=== PATIENT | male | born 1950 | race Caucasian/White ===

== ENCOUNTER → 2017-06-27 | Outpatient (CLI) | payer OTHER, BC ==
[~2017-06-27] MED LIST: ALPR1 PO; AMLO10; AMOCLA875 PO; Aspirin EC81 MG PO; DIVA500ER PO; FAMO10; HYDCHL25 PO; HYDR1TAB94; HYDR1TAB94 PO; NASAL STEROID; OMEP10ER PO; OMEP20ER PO; OMEPRAZOLE MAGN20 MG PO; OXYACE5T PO; PRAM.125 PO; SIMV40 PO; SULTRIDS PO; TRAM50 PO
== END ==
LOC: PLD 11:16 → LAB SHORT 11:16
DX: L82.1 Other seborrheic keratosis (principal)
CPT/HCPCS: 88305

== ENCOUNTER → 2019-03-02 | Outpatient (CLI) | payer MEDICARE ==
[2019-03-05 14:10] LABS: Performing Lab SYMBIODX; Test Name TISSUE BIOPSY
== END | disposition home or self-care (01) ==
LOC: LAB SHORT 07:48 → PLD 07:48
PROVIDERS: Otolaryngology
DX: J34.89 Other specified disorders of nose and nasal sinuses (principal)
CPT/HCPCS: 88305; 88312; 88341; 88342

== ENCOUNTER → 2019-12-07 | Outpatient (CLI) | payer MEDICARE | LOC: PLD 12:07 → LAB SHORT 12:07 | DX: C44.612 Basal cell carcinoma of skin of right upper limb, including shoulder (principal) | CPT/HCPCS: 88305 ==

== ENCOUNTER → 2020-01-13 | Outpatient (CLI) | payer MEDICARE | END | disposition home or self-care (01) | LOC: PLD 13:11 → LAB SHORT 13:11 | DX: C44.612 Basal cell carcinoma of skin of right upper limb, including shoulder (principal) | CPT/HCPCS: 88305 ==

== ENCOUNTER → 2021-03-22 | Outpatient (CLI) | payer MEDICARE | END | disposition home or self-care (01) | LOC: PLD 11:08 → LAB SHORT 11:08 | DX: C44.222 Squamous cell carcinoma of skin of right ear and external auricular canal (principal); C44.311 Basal cell carcinoma of skin of nose; L57.8 Other skin changes due to chronic exposure to nonionizing radiation | CPT/HCPCS: 88305 ==

== ENCOUNTER → 2021-08-10 | Outpatient (CLI) | payer MEDICARE | END | disposition home or self-care (01) | LOC: LAB SHORT 12:31 → LAB 12:31 | DX: C86.0 Extranodal NK/T-cell lymphoma, nasal type (principal) | CPT/HCPCS: 87070; 87077; 87147; 87186 ==

== ENCOUNTER → 2021-09-20 | Outpatient (CLI) | payer MEDICARE | END | disposition home or self-care (01) | LOC: PLD 12:07 → LAB SHORT 12:07 | DX: C44.41 Basal cell carcinoma of skin of scalp and neck (principal) | CPT/HCPCS: 88305 ==

== ENCOUNTER 2021-12-13 12:21 | Day surgery (SDC) | payer MEDICARE ==
[~2021-12-13] VITALS: Ht 167.6 cm; Wt 59.9 kg
[2021-12-13] MEDS ORDERED: Percocet 10-321 EACH (12:53)
--- NOTE | 2021-12-13 13:40 | NUR ---
12/13/21 1340 TABATHA STEVENS 30MG OF EPI POURED ONTO STERILE FIELD FOR USE DURING CASE.
--- NOTE | 2021-12-13 14:16 | NUR ---
12/13/21 1416 Ellie Kahn PT RESPONDS TO VOICE AND IS AROUSABLE. VSS. O2 DC'D AT 1415. PT'S SATS ARE 98% ON ROOM AIR.
--- NOTE | 2021-12-13 14:36 | NUR ---
12/13/21 1436 Ellie Kahn PT TRANSFERRED FROM THE [facility] TO THE [facility] WITH STAND BY ASSIST FROM RN. BEDOYA AFTER TRANSFER. AT CHAIRSIDE. PT DENIES NAUSEA AND PAIN AT THIS TIME. PT IS TOLERATING PO FLUIDS WELL.
== END 2021-12-13 15:00 | disposition home or self-care (01) ==
LOC: ORSCSDS 12:21
PROVIDERS: Otolaryngology
PROC: 0CBR8ZX Excision of Epiglottis, Via Natural or Artificial Opening Endoscopic, Diagnostic (ICD-10-PCS; principal; 2021-12-13 14:00)
DX: J31.2 Chronic pharyngitis (principal); Z85.72 Personal history of non-Hodgkin lymphomas; I10 Essential (primary) hypertension; E78.5 Hyperlipidemia, unspecified; K21.9 Gastro-esophageal reflux disease without esophagitis; G25.81 Restless legs syndrome; Z79.899 Other long term (current) drug therapy; Z87.891 Personal history of nicotine dependence
CPT/HCPCS: 88305; J0171; J1100; J2250; J2405; J2704; J2710; J3010; J7120

== ENCOUNTER 2022-08-31 09:06 | Day surgery (SDC) | payer MEDICARE ==
[~2022-08-31] VITALS: Ht 170.2 cm; Wt 62.3 kg
[~2022-08-31 09:06] MED LIST changes: +Percocet 10-321 EACH
[2022-08-31] MEDS ORDERED: OMEP20ER PO (09:35)
[2022-08-31] MEDS ORDERED: IBUP400 PO (09:39)
[2022-08-31 10:55] VITALS: BP 110/72
== END 2022-08-31 11:02 | disposition home or self-care (01) ==
LOC: ORSCSDS 09:06
PROVIDERS: Internal Medicine Gastroenterology
PROC: 0DB68ZX Excision of Stomach, Via Natural or Artificial Opening Endoscopic, Diagnostic (ICD-10-PCS; 2022-08-31)
PROC: 0DB58ZX Excision of Esophagus, Via Natural or Artificial Opening Endoscopic, Diagnostic (ICD-10-PCS; 2022-08-31)
PROC: 0D757ZZ Dilation of Esophagus, Via Natural or Artificial Opening (ICD-10-PCS; principal; 2022-08-31 10:30)
DX: R13.10 Dysphagia, unspecified (principal); K21.9 Gastro-esophageal reflux disease without esophagitis; K22.2 Esophageal obstruction; E78.5 Hyperlipidemia, unspecified; G40.909 Epilepsy, unspecified, not intractable, without status epilepticus; Z85.72 Personal history of non-Hodgkin lymphomas; Z87.891 Personal history of nicotine dependence; Z79.899 Other long term (current) drug therapy
CPT/HCPCS: 88305; 88342; J2704; J7120

== ENCOUNTER → 2022-11-14 | Outpatient (CLI) | payer MEDICARE ==
[~2022-11-14] MED LIST changes: +AMIT25 PO; +BENZ100A PO; +FLOMAX0.4 MG PO; +IBUP400 PO; +MIRAPEX0.25 M1 PO; +REMERON15 M2 PO
[2022-11-14 15:55] LABS: C DIFFICILE DNA NEGATIVE (Negative)
== END ==
LOC: LAB 08:00 → LAB SHORT 08:00
PROVIDERS: Physician Assistant
DX: R19.5 Other fecal abnormalities (principal)
CPT/HCPCS: 87493

== ENCOUNTER 2023-02-10 13:33 | Emergency (ER) | payer MEDICARE ==
[~2023-02-10] VITALS: Ht 170.2 cm; Wt 63.5 kg
[2023-02-10 14:21] LABS: BASOPHILS ABSOLUTE AUTO 0.01 K/mm3 (0.00-0.23); BASOPHILS PERCENT AUTO 0 % (0-2); EOSINOPHILS ABSOLUTE AUTO 0.03 K/mm3 (0.00-0.68); EOSINOPHILS PERCENT AUTO 0 % (0-6); Hematocrit 31.7 % (37.0-53.0); Hemoglobin 10.4 g/dL (13.5-17.5); IMMATURE GRAN ABSOLUTE AUTO 0.03 K/mm3 (0.00-0.10); IMMATURE GRAN PERCENT AUTO 0 % (0-1); LYMPHOCYTES ABSOLUTE AUTO 1.02 K/mm3 (0.84-5.20); LYMPHOCYTES PERCENT AUTO 12 % (21-46); MONOCYTES ABSOLUTE AUTO 0.95 K/mm3 (0.16-1.47); MONOCYTES PERCENT AUTO 11 % (4-13); Mean Corpuscular HGB 29.9 pg (26.0-34.0); Mean Corpuscular HGB Conc 32.8 g/dL (31.5-36.5); Mean Corpuscular Volume 91 fL (80-100); Mean Platelet Volume 8.4 fL (9.1-12.4); NEUTROPHILS ABSOLUTE AUTO 6.37 K/mm3 (1.96-9.15); NEUTROPHILS PERCENT AUTO 76 % (41-73); Platelet Count 178 K/mm3 (150-400); RDW Coefficient Variation 14.6 % (11.7-14.2); RDW Standard Deviation 48.6 fL (35.1-46.3); Red Blood Cell Count 3.48 M/mm3 (4.30-5.90); White Blood Cell Count 8.41 K/mm3 (4.00-11.30)
[2023-02-10 14:42] LABS: Albumin, Blood 2.7 g/dL (3.4-5.0); Albumin/Globulin Ratio 0.6 (0.8-1.8); Bilirubin, Total 0.3 mg/dL (0.1-1.0); Bun/Creatinine Ratio 39.5 (12.0-20.0); Calcium, Blood 9.3 mg/dL (8.5-10.1); Creatinine, Blood 0.66 mg/dL (0.60-1.20); Globulin, Blood 4.7 g/dL (2.2-4.0); Potassium, Blood 3.6 mmol/L (3.5-5.5); Total Protein, Blood 7.4 g/dL (6.4-8.2)
[2023-02-10 22:00] VITALS: BP 132/110
== END 2023-02-10 22:35 | disposition home or self-care (01) ==
LOC: ER 13:33
PROVIDERS: Physician Assistant
DX: R04.0 Epistaxis (principal); G40.909 Epilepsy, unspecified, not intractable, without status epilepticus; I10 Essential (primary) hypertension; I35.0 Nonrheumatic aortic (valve) stenosis; Z98.890 Other specified postprocedural states; Z79.02 Long term (current) use of antithrombotics/antiplatelets; Z87.891 Personal history of nicotine dependence
CPT/HCPCS: 30903; 70487; 71046; 80053; 83690; 85025; 86850; 86900; 86901; 96374-59; 99285-25; A9270; Q9967

== ENCOUNTER → 2023-02-19 | Outpatient (CLI) | payer OTHER ==
[~2023-02-19] MED LIST changes: +Aspir 8181 MG PO; +Crestor20 MG PO
== END ==
LOC: LAB 07:11 → LAB SHORT 07:11
DX: C86.0 Extranodal NK/T-cell lymphoma, nasal type (principal); J31.2 Chronic pharyngitis
CPT/HCPCS: 88305; 88312; 88341; 88342

== ENCOUNTER 2023-02-23 09:25 | Inpatient (IN) | payer OTHER ==
[~2023-02-23] VITALS: Ht 167.6 cm; Wt 55.4 kg
[~2023-02-23 09:25] MED LIST changes: -Aspir 8181 MG PO; -Crestor20 MG PO; +DIVA125 PT; +Prilosec10 M1 PT
[2023-02-23 11:10] LABS: BASOPHILS ABSOLUTE AUTO 0.01 K/mm3 (0.00-0.23); BASOPHILS PERCENT AUTO 0 % (0-2); EOSINOPHILS PERCENT AUTO 0 % (0-6); Hematocrit 24.5 % (37.0-53.0); Hemoglobin 8.2 g/dL (13.5-17.5); IMMATURE GRAN ABSOLUTE AUTO 0.05 K/mm3 (0.00-0.10); IMMATURE GRAN PERCENT AUTO 0 % (0-1); LYMPHOCYTES ABSOLUTE AUTO 0.58 K/mm3 (0.84-5.20); LYMPHOCYTES PERCENT AUTO 5 % (21-46); MONOCYTES PERCENT AUTO 4 % (4-13); Mean Corpuscular HGB 29.7 pg (26.0-34.0); Mean Corpuscular HGB Conc 33.5 g/dL (31.5-36.5); Mean Corpuscular Volume 89 fL (80-100); NEUTROPHILS ABSOLUTE AUTO 10.14 K/mm3 (1.96-9.15); NEUTROPHILS PERCENT AUTO 90 % (41-73); Platelet Count 231 K/mm3 (150-400); RDW Coefficient Variation 14.9 % (11.7-14.2); RDW Standard Deviation 47.8 fL (35.1-46.3); Red Blood Cell Count 2.76 M/mm3 (4.30-5.90); White Blood Cell Count 11.28 K/mm3 (4.00-11.30)
[2023-02-23 11:37] LABS: Albumin, Blood 2.3 g/dL (3.4-5.0); Albumin/Globulin Ratio 0.4 (0.8-1.8); Bilirubin, Total 0.4 mg/dL (0.1-1.0); Bun/Creatinine Ratio 34.8 (12.0-20.0); Calcium, Blood 9.4 mg/dL (8.5-10.1); Creatinine, Blood 0.83 mg/dL (0.60-1.20); Globulin, Blood 5.7 g/dL (2.2-4.0)
[2023-02-23] MEDS ORDERED: Crestor20 MG PO (13:49)
[2023-02-23] MEDS ORDERED: ASPI81CH PO (13:49)
[2023-02-23 18:00] VITALS: BP 104/71
--- NOTE | 2023-02-23 19:14 | NUR ---
PT ARRIVED TO ROOM [id number] VIA GURNEY FROM ER. D5LR INFUSING PER MD ORDERS. PT AWAKE, ALERT, ORIENTED X4. ORIENTED TO ROOM, UNIT AND ROUTINES. PT GIVEN CALL LIGHT AND EXPLAINED USE, PT VERBALIZES UNDERSTANDING. PT'S VOICE IS QUIET AND HARSH, FREQUENT COUGHING, SUCTION SET UP FOR PT TO USE. PT NOTED TO HAVE FOUL ORAL ODOR, TEMP 99.8, SR HR 92 ON ARRIVAL. SEE DOCUMENTED VS. PT MEDICATED WITH MORPHINE FOR THROAT PAIN. PT APPEARS FRAIL AND CACHECTIC, PALE, WEAK. PT ABLE TO STAND AND PIVOIT FROM GURNEY TO BED ON ARRIVAL. REPORT GIVEN TO SOHAM LINDSEY. PT HAS CALL LIGHT IN REACH AND IS ABLE TO USE IT APPROPRIATELY FOR NEEDS.
[2023-02-23 20:00] VITALS: BP 100/64
[2023-02-24] VITALS (15 sets, daily range): BP systolic 87–126; BP diastolic 28–99
[2023-02-24 04:03] LABS: BASOPHILS PERCENT AUTO 0 % (0-2); EOSINOPHILS PERCENT AUTO 0 % (0-6); Hematocrit 19.6 % (37.0-53.0); Hemoglobin 6.5 g/dL (13.5-17.5); IMMATURE GRAN ABSOLUTE AUTO 0.04 K/mm3 (0.00-0.10); IMMATURE GRAN PERCENT AUTO 1 % (0-1); LYMPHOCYTES ABSOLUTE AUTO 0.34 K/mm3 (0.84-5.20); LYMPHOCYTES PERCENT AUTO 6 % (21-46); MONOCYTES ABSOLUTE AUTO 0.31 K/mm3 (0.16-1.47); MONOCYTES PERCENT AUTO 5 % (4-13); Mean Corpuscular HGB 29.8 pg (26.0-34.0); Mean Corpuscular HGB Conc 33.2 g/dL (31.5-36.5); Mean Corpuscular Volume 90 fL (80-100); Mean Platelet Volume 8.3 fL (9.1-12.4); NEUTROPHILS ABSOLUTE AUTO 5.54 K/mm3 (1.96-9.15); NEUTROPHILS PERCENT AUTO 89 % (41-73); Platelet Count 192 K/mm3 (150-400); RDW Coefficient Variation 14.8 % (11.7-14.2); RDW Standard Deviation 48.6 fL (35.1-46.3); Red Blood Cell Count 2.18 M/mm3 (4.30-5.90); White Blood Cell Count 6.23 K/mm3 (4.00-11.30)
[2023-02-24 04:29] LABS: Albumin, Blood 1.8 g/dL (3.4-5.0); Albumin/Globulin Ratio 0.4 (0.8-1.8); Bilirubin, Total 0.2 mg/dL (0.1-1.0); Bun/Creatinine Ratio 47.9 (12.0-20.0); Calcium, Blood 9.2 mg/dL (8.5-10.1); Creatinine, Blood 0.54 mg/dL (0.60-1.20); Globulin, Blood 4.7 g/dL (2.2-4.0); Magnesium, Blood 1.9 mg/dL (1.6-2.4); Phosphorus, Blood 2.6 mg/dL (2.5-4.9); Total Protein, Blood 6.5 g/dL (6.4-8.2)
--- NOTE | 2023-02-24 05:19 | NUR ---
SHIFT SUMMARY PT A&O X4, PLEASANT AND COOPERATIVE WITH CARE ALTHOUGH PT DOES SEEM A LITTLE WITHDRAWN AND AFFECT IS FLAT. PT SPEECH IS SOFT AND AT TIMES HAS DIFFICULT TIME TALKING, STRONG ODOR NOTED FROM ORAL CAVITY. PT DOES HAVE FREQUENT PRODUCTIVE COUGH WITH THICK, PURULENT SPUTUM. PT DENIES BLOOD IN SPUTUM AT THIS TIME. PT C/O THROAT PAIN, MOSTLY ON THE L SIDE, 10/10 PAIN. MEDICATION PER EMAR WELL REST. ABX PER EMAR. VSS T/O; SBP 90 - 100'S, HRR SINUS RHYTHM WOTH RATE IN 90'S, TEMP MAX 99.8, SPO2 >94% ON RA. PT DENIES SOB, CP/PRESSURE. PT DENIES CONCERNS WITH GI/; PT VOIDING THIS SHIFT. PT AMBULATING TO RESTROOM WITH FWW AND ASSISTANCE. PT TOLERATING THIS FAIR BUT GAIT IS MILDLY UNSTEADY AND PT IS WEAK. NO ACUTE EVENTS OVERNIGHT. PT DOES EXPRESS HE IS "WAITING TO HEAR IF HE IS GOING TO OR NOT" PT STATES HE IS AWAITING "TEST RESULTS TO FIND OUT". PT EXPRESSES HE IS "READY" AND IS "READY TO BE ON HOSPICE OR BE DONE". PT STATES HE "FEELS OKAY WITH THIS" AND "JUST WANTS HIS TO NOT BE SO BURDENED WITH HIM". THIS RN OFFERED SUPPORT AND LISTENING. PT DID NOT SLEEP MUCH THIS SHIFT, "ON AND OFF" D/T DISCOMFORT AND PAIN DESPITE MEDICAITION. IVF NUTRITION AND FLUIDS PER EMAR. WILL UPDATE ONCOMING RN
[2023-02-24 15:01] LABS: Hematocrit 24.3 % (37.0-53.0)
--- NOTE | 2023-02-24 17:51 | NUR ---
ASSUMED CARE OF PT AT 0700 THIS AM. PT'S HEMOGLOBIN NOTED TO BE 6.5 ON THIS MORNING'S LABS AND CLINIMIX PLUS D5LR RUNNING. DR CARBALLO NOTIFIED AND NEW ORDERS RECEIVED. 1 UNIT PRBCs TRANSFUSED WITHOUT ANY COMPLICATIONS OR REACTIONS NOTED. BREATH SOUNDS REMAINED CLEAR T/O AND SPO2 STEADY >95%. HEMOGLOBIN INCREASED TO 8.0 ON RECHECK AFTER BLOOD TRANSFUSION. PT MEDICATED FOR PAIN AND ANXIETY PER MD ORDERS. PT'S IN TO VISIT AND SHE WAS UPDATED ON PT'S CONDITION AND PLAN OF CARE. NO OTHER ACUTE EVENTS T/O THE SHIFT. SEE DOCUMENTED VS AND ASSESSMENT. PT NOTED TO HAVE SOME PERIODS OF CONFUSION AT TIMES TODAY, BUT IS ABLE TO USE HIS CALL LIGHT AND COMMUNICATE HIS NEEDS APPROPRIATELY. WILL CONTINUE TO MONITOR AND GIVE REPORT TO NOC SHIFT RN.
[2023-02-25] VITALS: BP 137/85
[2023-02-25 04:00] VITALS: BP 135/94
[2023-02-25 04:40] LABS: BASOPHILS PERCENT AUTO 0 % (0-2); EOSINOPHILS PERCENT AUTO 0 % (0-6); Hematocrit 25.1 % (37.0-53.0); Hemoglobin 8.4 g/dL (13.5-17.5); IMMATURE GRAN ABSOLUTE AUTO 0.04 K/mm3 (0.00-0.10); IMMATURE GRAN PERCENT AUTO 1 % (0-1); LYMPHOCYTES ABSOLUTE AUTO 0.49 K/mm3 (0.84-5.20); LYMPHOCYTES PERCENT AUTO 6 % (21-46); MONOCYTES ABSOLUTE AUTO 0.59 K/mm3 (0.16-1.47); MONOCYTES PERCENT AUTO 8 % (4-13); Mean Corpuscular HGB 29.9 pg (26.0-34.0); Mean Corpuscular HGB Conc 33.5 g/dL (31.5-36.5); Mean Corpuscular Volume 89 fL (80-100); Mean Platelet Volume 8.7 fL (9.1-12.4); NEUTROPHILS ABSOLUTE AUTO 6.49 K/mm3 (1.96-9.15); NEUTROPHILS PERCENT AUTO 85 % (41-73); Platelet Count 228 K/mm3 (150-400); RDW Coefficient Variation 14.4 % (11.7-14.2); RDW Standard Deviation 46.5 fL (35.1-46.3); Red Blood Cell Count 2.81 M/mm3 (4.30-5.90); White Blood Cell Count 7.61 K/mm3 (4.00-11.30)
[2023-02-25 05:12] LABS: Albumin, Blood 1.9 g/dL (3.4-5.0); Anion Gap 7 mmol/L (6-16); Blood Urea Nitrogen 24 mg/dL (8-24); CO2, Blood 26 mmol/L (21-32); Calcium, Blood 9.3 mg/dL (8.5-10.1); Chloride, Blood 100 mmol/L (98-108); Creatinine, Blood 0.51 mg/dL (0.60-1.20); Glomerular Filtration Rate 108 (60-); Glucose, Blood 117 mg/dL (70-99); Magnesium, Blood 1.8 mg/dL (1.6-2.4); Phosphorus, Blood 3.2 mg/dL (2.5-4.9); Sodium, Blood 133 mmol/L (136-145)
--- NOTE | 2023-02-25 05:19 | NUR ---
SHIFT SUMMARY PT REMAINS A&O X3, PLEASANT AND COOPERATIVE WITH CARE. VSS T/O SHIFT; SBP 120 - 130'S, SINUS RHYTHM WITH RATE IN 70'S, AFERBILE, SPO2 >95% ON RA. PT DENIES CP/PRESSURE, DENIES SOB OR DIZZINESS. PT CONTINUES TO HAVE PRODUCTIVE COUGH; PT DENIES BLOOD IN SPUTUM. PT CONTINUES TO REPORT PAIN 5-6/10 IN HIS THROAT AND EARS; ALTHOUGH PT DID NOT C/O MUCH PREVIOUS, PT MEDICATED LESS OFTEN PAIN HE DID NOT ASK OR DECLINED WHEN ASKED. PT SEEMED TO HAVE RESTED WELL T/O THE NIGHT BETTER THAN PREVIOUS NIGHTS. PT USING URINAL INDEPENDENTLY AT BEDSIDE; PT VOIDING SMALL AMOUNTS, FREQUENTLY AROUND 50 - 200 MLS EACH TIME. PT HAD 2 BM'S THIS SHIFT; ONE WAS INCONTINENT AND MEDIUM, THE OTHER ONE WAS ON BSC AND WAS LARGE, FORMED BUT SOFT AND BROWN/YELLOW IN COLOR. IV NUTRITION AND ABX PER EMAR. CBG STABLE. NO ACUTE CHANGES DURING THE NIGHT. CALL LIGHT IN REACH AND PT CURRENTLY RESTING. WILL UPDATE ONCOMING RN
[2023-02-25 07:25] VITALS: BP 125/86
[2023-02-25 09:12] LABS: Triglycerides 84 mg/dL (30-160)
[2023-02-25 09:52] VITALS: BP 128/98
--- NOTE | 2023-02-25 17:14 | NUR ---
SHIFT SUMMARY PT REMAINS ALERT AND ORIENTED. PT IS SOFT SPOKEN. BP STABLE. HR REMAINS NSR. PT COMPLAINS OF PAIN TO THROAT, NECK AND EYES THROUGHOUT SHIFT. PT COUGHS FREQUENTLY AND COMPLAINS OF NASAL CONGESTION. PT USING SALINE SPRAY TO CLEAR SINUSES. PT IS NOW NPO AFTER WORKING WITH SPEECH THERAPY. DR. FORREST CALLED AND DISCUSSED HOME MEDICATIONS THAT PATIENT IS NOT RECEIVING, AND SWITCHING PO MEDS TO IV. CLINIMIX INFUSING PER ORDERS. PT UP TO BSC MULTIPLE TIMES TO VOID. PT MEDICATED PER EMAR FOR PAIN AND HAS HAD LIGHT OFF IN ROOM MOST OF SHIFT HE STATES IT HELPS THE PAIN IN HIS EYES. PT REPOSTIONING HIMSELF IN THE BED INDEPENDENTLY. WILL CONTINUE TO MONITOR AND REPORT TO ONCOMING RN
--- NOTE | 2023-02-25 17:41 | NUR ---
UPDATE REPORT CALLED TO MEDICAL FLOOR ROSALIA MARADIAGA. PT TRANSFERRED TO [facility] VIA . PT'S CALLED AND NOTIFIED OF TRANSFER AND NEW ROOM NUMBER
--- NOTE | 2023-02-25 18:58 | NUR ---
TRANSFER NOTE: PATIENT ARRIVED VIA WHEELCHAIR FROM THE FROM PCU. HE WAS ABLE TO SELF TRANSFER FROM THE WHEELCHAIR TO THE BED. HE WAS RECEIVING IV CLINIMIX WHEN HE ARRIVED. NEW BAG CALLED IN TO PHARMACY AND PLACED IN PATIENT DRAW. HE WAS MEDICATED PER REQUEST FOR PAIN AND ANXIETY. HE IS SETTLED IN HIS ROOM, CALL LIGHT WITHIN REACH, NEEDS MET. NO SIGNS OR SYMPTOMS OF DISTRESS. PLAN OF CARE ONGOING.
[2023-02-25 21:24] VITALS: BP 125/86
[2023-02-26] VITALS (33 sets, daily range): BP systolic 106–141; BP diastolic 79–109
[2023-02-26 06:17] LABS: BASOPHILS PERCENT AUTO 0 % (0-2); EOSINOPHILS PERCENT AUTO 0 % (0-6); Hematocrit 27.1 % (37.0-53.0); IMMATURE GRAN ABSOLUTE AUTO 0.07 K/mm3 (0.00-0.10); IMMATURE GRAN PERCENT AUTO 1 % (0-1); LYMPHOCYTES ABSOLUTE AUTO 1.04 K/mm3 (0.84-5.20); LYMPHOCYTES PERCENT AUTO 12 % (21-46); MONOCYTES ABSOLUTE AUTO 0.76 K/mm3 (0.16-1.47); MONOCYTES PERCENT AUTO 9 % (4-13); Mean Corpuscular HGB 29.5 pg (26.0-34.0); Mean Corpuscular HGB Conc 33.2 g/dL (31.5-36.5); Mean Corpuscular Volume 89 fL (80-100); Mean Platelet Volume 8.3 fL (9.1-12.4); NEUTROPHILS ABSOLUTE AUTO 6.84 K/mm3 (1.96-9.15); NEUTROPHILS PERCENT AUTO 79 % (41-73); Platelet Count 256 K/mm3 (150-400); RDW Coefficient Variation 14.2 % (11.7-14.2); RDW Standard Deviation 45.7 fL (35.1-46.3); Red Blood Cell Count 3.05 M/mm3 (4.30-5.90); White Blood Cell Count 8.71 K/mm3 (4.00-11.30)
[2023-02-26 06:41] LABS: Bun/Creatinine Ratio 37.3 (12.0-20.0); Calcium, Blood 9.9 mg/dL (8.5-10.1); Creatinine, Blood 0.56 mg/dL (0.60-1.20); Potassium, Blood 4.7 mmol/L (3.5-5.5)
--- NOTE | 2023-02-26 06:58 | NUR ---
Shift Summary Pt rcving clinimex and IV pain medications for severe throat pain, as well as IV ABX . Pt accidentally pulled out his IV while using the urinal, a new IV was placed in L AC and protected with coban wrap. His voice is hoarse. He is AOx3 and can move to the BSC steadily with one SBA. Strength is equal on both sides and pupils react equally and approriatly to light. He has noticable tremor. He slept on and off t/o the night and was cooperative with care.
--- NOTE | 2023-02-26 16:00 | NUR ---
PT TO DAY SURGERY FOR EGD W/Placement Feeding Tube BY DR DIXON. PLAN OF CARE DISCUSSED WITH PT.
--- NOTE | 2023-02-26 16:17 | NUR ---
PT TO DAY SURGERY WITH 20G IV IN RIGHT AC AND HAS 22G IV IN LEFT AC.
--- NOTE | 2023-02-26 17:09 | NUR ---
02/26/23 3228 Dennis Babb History, Chart, Medications and Allergies reviewed before start of procedure. MONITOR INTACT WITH CONTINUOUS PULSE OXIMETRY, CONTINUOUS END TITAL CO2, AND INTERMITTENT BLOOD PRESSURE. 3-LEAD EKG REVIEWED WITH PHYSICIAN PRIOR TO START OF PROCEDURE. O2 VIA N/C INTACT THROUGHOUT SEDATION/PROCEDURE.
--- NOTE | 2023-02-26 17:49 | NUR ---
BLEEDING FROM INCISION NOTED AFTER PROCEDURE. DRESSING SATURATED WITH BLOOD. DR DIXON INFORMED. PRESSURE REMAINED HELD ON INCISION BY RN FOR MULTIPLE MINUTES. BLEEDING SLOWED, NEW DRESSING WITH FOAM TAPE PRESSING DRESSING IN PLACE.
--- NOTE | 2023-02-26 18:42 | NUR ---
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 HE HAS BEEN NPO AND UNDERWENT SURGERY THIS AFTERNOON FOR PEG TUBE PLACEMENT. PATIENT RETURNED FROM DAY SURGERY VIA GURNEY WAS ALERT AND ORIENTED WHEN ARRIVED AND C/O MINIMAL DISCOMFORT. HE WAS ABLE TO AMBULATE TO HIS BED WITHOUT DIFFICULTY. HE WAS CONNECTED TO HIS IV FLUIDS/CLINIMIX/LIPIDS. PER DR. DIXON ORDER OKAY TO START USING PEG TUBE TOMORROW 02/27/23 ATFER 0600AM. THE DAY SURGERY NURSE MARCIAL CALLED AND GAVE REPORT THAT THE PATIENT TOLERATED THE PROCEDURE WELL AND THAT HE DOES HAVE SOME POST SURGICAL BLEEDING AND THAT PRESSURE WAS APPLIED AND THAT FOAM TAPE WAS APPLIED TO KEEP APPLYING PRESSURE. DRESSING WAS SATURATED WITH BLOOD AND PATIENT'S GOWN/PANTS NEEDED TO BE CHANGED. HIS DRESSING WAS CHANGED AND FOAM TAPE REAPPLIED FOR SLIGHT PRESSURE. POST OP VITALS OBTAINED AND ARE STABLE. PATIENT NOT SHOWING ANY SIGNS OR SYMPTOMS OF DISTRESS AND STATES THAT HE FEELS GOOD AND THAT HE WOULD LIKE TO GO TO SLEEP. HE IS IN HIS BED, CALL LIGHT WITHIN REACH, BELONGINGS WITHIN REACH. PLAN OF CARE ONGOING.
[2023-02-27 02:55] VITALS: BP 122/84
[2023-02-27 06:33] LABS: BASOPHILS ABSOLUTE AUTO 0.01 K/mm3 (0.00-0.23); BASOPHILS PERCENT AUTO 0 % (0-2); EOSINOPHILS PERCENT AUTO 0 % (0-6); Hematocrit 27.5 % (37.0-53.0); Hemoglobin 9.2 g/dL (13.5-17.5); IMMATURE GRAN ABSOLUTE AUTO 0.16 K/mm3 (0.00-0.10); IMMATURE GRAN PERCENT AUTO 2 % (0-1); LYMPHOCYTES ABSOLUTE AUTO 1.27 K/mm3 (0.84-5.20); LYMPHOCYTES PERCENT AUTO 12 % (21-46); MONOCYTES ABSOLUTE AUTO 1.01 K/mm3 (0.16-1.47); MONOCYTES PERCENT AUTO 10 % (4-13); Mean Corpuscular HGB 29.5 pg (26.0-34.0); Mean Corpuscular HGB Conc 33.5 g/dL (31.5-36.5); Mean Corpuscular Volume 88 fL (80-100); Mean Platelet Volume 8.9 fL (9.1-12.4); NEUTROPHILS ABSOLUTE AUTO 7.89 K/mm3 (1.96-9.15); NEUTROPHILS PERCENT AUTO 76 % (41-73); NRBC ABSOLUTE 0.02 K/mm3 (0.00-0.02); NRBC Auto 0.2 /100 WBC (0.0-0.2); Platelet Count 303 K/mm3 (150-400); RDW Coefficient Variation 14.5 % (11.7-14.2); RDW Standard Deviation 45.7 fL (35.1-46.3); Red Blood Cell Count 3.12 M/mm3 (4.30-5.90); White Blood Cell Count 10.34 K/mm3 (4.00-11.30)
[2023-02-27 07:03] LABS: Bun/Creatinine Ratio 39.7 (12.0-20.0); Calcium, Blood 9.7 mg/dL (8.5-10.1); Creatinine, Blood 0.53 mg/dL (0.60-1.20); Potassium, Blood 4.2 mmol/L (3.5-5.5)
[2023-02-27 07:38] VITALS: BP 120/91
[2023-02-27 12:03] LABS: Magnesium, Blood 1.6 mg/dL (1.6-2.4); Phosphorus, Blood 3.5 mg/dL (2.5-4.9)
[2023-02-27 16:41] VITALS: BP 99/80
--- NOTE | 2023-02-27 17:08 | NUR ---
PT REPORTS CONGESTION. OFFERED TO CALL MD FOR MEDICAION OR TREATMENT. PT DECLINED. PT USING WATER RINSE IN NOSTRAL AND USING TWEEZERS TO TRY AND REMOVE FOREIGN MATTERIAL. EDUCATED PT AGAINST DOING SO. PT BECAME UPSET AND STATED "THIS IS THE ONLY WAY TO DO IT" HE REPORTS DOING SO FOR YEARS. EMPHASIZED THE RISK OF POTENTIAL DAMAGE AND RISK OF INFECTION. PT VERBALIZED UNDERSTANDING OF EDUCATION BUT WILL CONTINUE TO STICK TWEEZERS IN NOSTRAL. MD NOTIFED ABOUT SITUATION.
[2023-02-27 19:34] VITALS: BP 103/73
--- NOTE | 2023-02-27 19:40 | NUR ---
PT IS ALERT AND ORIENTED X4. VERY PARTICULAR IN HIS PERSONAL CARE. URINAL USE INDEPENDENTLY. SBA TO CHAIR AND BED. WILL CALL APPROPRIATELY. TREATED THROAT PAIN, ABDOMEN TUBE SITE, AND BACK PAIN PER EMAR. TUBE FEEDING STARTED TODAY ORDERED. PT TOLORATED WELL, DENIES CRAMPING AND DISCOMFORT AFTER FEEDING. PT REMAINS NPO BUT EXPRESSED DESIRE TO EAT WHAT HE FEELS LIKE AND GET NUTRITION FROM PED TUBE. DRESSING CHANGED THIS MORNING. SANGUNOUS DISCHARGE- MODERATE NOTED ON SOILED DRESSING.
[2023-02-28 04:10] VITALS: BP 117/93
--- NOTE | 2023-02-28 04:25 | NUR ---
SHIFT SUMMARY: PATIENT A&O X4. TUBE FEEDING AND FLUSHES GIVEN ORDERED AND TOLERATED WELL NO C/O GI UPSET OR DISCOMFORT R/T FEEDING. IV ABX INFUSED ORDERED THIS SHIFT, INDEPENDANT WITH URNIAL. C/O HEAD, THROAT AND PELVIC PAIN TREATED PER EMAR AND EFFECTIVE. COUGH OBSERVED THIS SHIFT.
[2023-02-28 05:32] LABS: BASOPHILS ABSOLUTE AUTO 0.01 K/mm3 (0.00-0.23); BASOPHILS PERCENT AUTO 0 % (0-2); EOSINOPHILS ABSOLUTE AUTO 0.01 K/mm3 (0.00-0.68); EOSINOPHILS PERCENT AUTO 0 % (0-6); Hemoglobin 9.9 g/dL (13.5-17.5); IMMATURE GRAN ABSOLUTE AUTO 0.15 K/mm3 (0.00-0.10); IMMATURE GRAN PERCENT AUTO 2 % (0-1); LYMPHOCYTES ABSOLUTE AUTO 1.65 K/mm3 (0.84-5.20); LYMPHOCYTES PERCENT AUTO 18 % (21-46); MONOCYTES ABSOLUTE AUTO 1.06 K/mm3 (0.16-1.47); MONOCYTES PERCENT AUTO 11 % (4-13); Mean Corpuscular HGB 29.4 pg (26.0-34.0); Mean Corpuscular Volume 89 fL (80-100); Mean Platelet Volume 8.4 fL (9.1-12.4); NEUTROPHILS ABSOLUTE AUTO 6.52 K/mm3 (1.96-9.15); NEUTROPHILS PERCENT AUTO 69 % (41-73); Platelet Count 349 K/mm3 (150-400); RDW Coefficient Variation 14.8 % (11.7-14.2); RDW Standard Deviation 46.4 fL (35.1-46.3); Red Blood Cell Count 3.37 M/mm3 (4.30-5.90)
[2023-02-28 06:18] LABS: Magnesium, Blood 1.8 mg/dL (1.6-2.4)
[2023-02-28 06:20] LABS: Bun/Creatinine Ratio 37.9 (12.0-20.0); Calcium, Blood 9.6 mg/dL (8.5-10.1); Creatinine, Blood 0.63 mg/dL (0.60-1.20); Phosphorus, Blood 2.7 mg/dL (2.5-4.9); Potassium, Blood 3.6 mmol/L (3.5-5.5)
[2023-02-28 07:31] VITALS: BP 110/87
[2023-02-28 15:10] VITALS: BP 102/77
--- NOTE | 2023-02-28 18:20 | NUR ---
PT IS ALERT AND ORIENTED X4. FORGETFUL. PEG TUBE SPLIT GAUZE C/D/I. NO NEED TO CHANGE THIS SHIFT. PT TOLORATING FEEDS AT GOAL. SBA WITH WALKER. EDUCATED PT ON FALL RISKS PT VERBALIZE UNDERSTANDING. PT IS VERY ANXIOUS AND BECAME UPSET WHEN HE WAS TOLD HE WOULD NEED TO STAY ANOTHER NIGHT. EXPLAINED THAT WE DID NOT HAVE EVERYTHING SET UP AT HOME FOR HIM TO HAVE A SAFE DISCHARGE TONIGHT. PT UNDERSTANDABLY UPSET. ORDERED MELATONIN PER DR. FORREST. PT REPORTING NOT SLEEPING AT ALL. HOME DOSE IS 5-10MG. PT IS CONGESTED AND DECLINES ALL OFFERS TO SPEAK TO MD ABOUT IT, DECLINES MEDICATION, PT BECOMES UPSET WHEN DISCUSSING THE MATTER AND STATES THAT HE HAS BEEN CLEANING OUT HIS SINUSES HIS WAY FOR SEVERAL YEARS AND HE KNOWS WHAT HE NEEDS TO DO. PT SQUIRTING WATER FROM HOME SQUEEZE BOTTLE IN NOSE AND STICKING TWEEZERS IN NOSE TO REMOVE DEBRIS. STRONGLY SUGGESTED THAT HE NOT DO SO AND EXPLAINED RISK FOR DAMAGE AND INFECTION AGAIN TODAY. PT VERBALIZED UNDERSTANDING BUT STATED HE WILL DO IT ANYWAY. IV ANTIBIOTICS CONTINUED. PT DECLINED PAIN TODAY. DID HAVE BM TODAY.
[2023-02-28 20:05] VITALS: BP 89/62
--- NOTE | 2023-03-01 02:47 | NUR ---
STRAIGHT CATH: BLADDER SCAN SHOWED 571CC. STRAIGHT CATH, SMALL AMOUNT OF SHASHI BLOOD THEN CLEAR YELLOW URINE 650CC TOTAL OUT.
[2023-03-01 03:37] VITALS: BP 108/74
--- NOTE | 2023-03-01 04:43 | NUR ---
SHIFT SUMMARY: RESTING IN BED THIS SHIFT, VOIDING BETWEEN 50 TO 100CC AT A TIME, REPORTED URGENCY AND DISCOMFORT, NEW ORDER PLACED FOR BLADDER SCAN AND STRAIGHT CATH, STRAIGHT CATH 650CC OUT AND TOLERATED WELL, UP TO BATHROOM WITH STAFF ASSIST AND FWW.
[2023-03-01 07:14] VITALS: BP 103/66
[2023-03-01] MEDS ORDERED: AMOX-CLAV200 MG/51 PO (12:37)
[2023-03-01] MEDS ORDERED: DOXA1 PT (12:38)
[2023-03-01] MEDS ORDERED: NUTRISOURCE FI1 EACH PT (12:40)
[2023-03-01] MEDS ORDERED: B-1100 M2 PT (12:41)
[2023-03-01 12:44] LABS: Source, Urine Foley catheter
[2023-03-01] MEDS ORDERED: ROXICODONE PT (12:47)
[2023-03-01 12:54] LABS: Appearance, Urine Clear (Clear); Bilirubin, Urine Neg (Neg); Blood, Urine 5+ (Neg); Color, Urine Yellow (P-Yellow); Glucose Qualitative, Urine Neg (Neg); Ketones, Urine Neg (Neg); Leukocyte Esterase, Urine Neg (Neg); Nitrite, Urine Neg (Neg); Protein, Urine Neg (Neg); Urobilinogen, Urine NORM (Normal)
[2023-03-01 13:14] LABS: Bacteria Rare /hpf; Red Blood Cells, Urine 25-50 /hpf (0-2); Squamous Epithelial Cells Rare /hpf (Few)
[2023-03-01 13:15] LABS: Granular Casts 0-2 /lpf (0); Hyaline Casts 0-2 /lpf (0-2)
--- NOTE | 2023-03-01 16:34 | NUR ---
PT DISCHARGED HOME WITH HOME HEALTH. PEG TUBE WORKING INTENDEND. PT DENIES BLOATING OR DISCOMFORT. EDUCATION PROVIDED ON FEEDING INSTRUCTIONS WITH EACH FEEDING AND WATER FLUSH. WILL REQUIRE REINFORCEMENT WHEN AT HOME. ALERT AND ORIENTED X4, FORGETFUL AT TIMES. CLINTON CATHETER IN PLACE AT DISCHARGE- DISCUSSED NEED FOR CLINTON CATHETER WITH PT DUE TO URINE RETENTION. PT AGREES WITH CLINTON CATHETER PLACEMENT. DR. FORREST ALSO AGREE THAT CLINTON PLACEMENT IS NECESSARY FOR PT. PT SENT HOME WITH ENOUGH FORMULA TO LAST UNTIL DELIVERY TO PT HOME. TWO PRESCRIPTIONS SENT HOME WITH PT AND SPOUSE.
== END 2023-03-01 14:15 | disposition home health service (06) | DRG 153 ==
LOC: ER 09:25 → MEDS 18:42 → PCU 18:42 → MEDS 02-25 17:43 → ENPENDDIS 03-01 11:19 → MEDS 03-01 14:15
PROVIDERS: Internal Medicine; Student in an Organized Health Care Education/Training Program; Surgery; ADMIT Family Medicine
PROC: 0DH63UZ Insertion of Feeding Device into Stomach, Percutaneous Approach (ICD-10-PCS; principal; 2023-02-26 12:15)
DX: J02.9 Acute pharyngitis, unspecified (principal); D62 Acute posthemorrhagic anemia; E46 Unspecified protein-calorie malnutrition; I25.10 Atherosclerotic heart disease of native coronary artery without angina pectoris; Z66 Do not resuscitate; I10 Essential (primary) hypertension; E78.5 Hyperlipidemia, unspecified; I35.0 Nonrheumatic aortic (valve) stenosis; D63.8 Anemia in other chronic diseases classified elsewhere; K21.9 Gastro-esophageal reflux disease without esophagitis; Z88.8 Allergy status to other drugs, medicaments and biological substances; Z88.6 Allergy status to analgesic agent; Z79.82 Long term (current) use of aspirin; Z95.5 Presence of coronary angioplasty implant and graft; Z87.891 Personal history of nicotine dependence; Z68.22 Body mass index [BMI] 22.0-22.9, adult; Z92.21 Personal history of antineoplastic chemotherapy; Z92.3 Personal history of irradiation; Z85.72 Personal history of non-Hodgkin lymphomas
CPT/HCPCS: 36415; 80048; 80053; 80069; 81001; 82330; 82947; 83735; 84100; 84478; 85014; 85018; 85025; 86850; 86900; 86901; 86923; 92526; 92610; 93005; 93010; 96365; 96375; 97110; 97116; 97161; 97165; 97530; 97535; 99285-25; A9270; C9113; J0295; J1100; J2001; J2060; J2250; J2270; J2405; J2704; J7030; J7050; J7120; J7121; P9016

== ENCOUNTER → 2023-03-05 | Outpatient (CLI) | payer OTHER ==
[~2023-03-05] MED LIST changes: +AMOX-CLAV200 MG/51 PO; +ASPI81CH PO; +B-1100 M2 PT; +Crestor20 MG PO; +DOXA1 PT; +NUTRISOURCE FI1 EACH PT; +ROXICODONE PT
== END | disposition home or self-care (01) ==
LOC: LAB SHORT 12:17 → LAB 12:17
DX: R13.10 Dysphagia, unspecified (principal)
CPT/HCPCS: 87081; 87147

== ENCOUNTER 2023-03-09 00:48 | Observation (INO) | payer OTHER ==
[~2023-03-09] VITALS: Ht 172.7 cm; Wt 61.2 kg
[2023-03-09 01:50] LABS: BASOPHILS ABSOLUTE AUTO 0.01 K/mm3 (0.00-0.23); BASOPHILS PERCENT AUTO 0 % (0-2); EOSINOPHILS ABSOLUTE AUTO 0.01 K/mm3 (0.00-0.68); EOSINOPHILS PERCENT AUTO 0 % (0-6); Hematocrit 24.6 % (37.0-53.0); Hemoglobin 8.4 g/dL (13.5-17.5); IMMATURE GRAN ABSOLUTE AUTO 0.06 K/mm3 (0.00-0.10); IMMATURE GRAN PERCENT AUTO 1 % (0-1); LYMPHOCYTES ABSOLUTE AUTO 0.67 K/mm3 (0.84-5.20); LYMPHOCYTES PERCENT AUTO 11 % (21-46); MONOCYTES ABSOLUTE AUTO 0.48 K/mm3 (0.16-1.47); MONOCYTES PERCENT AUTO 8 % (4-13); Mean Corpuscular HGB 29.6 pg (26.0-34.0); Mean Corpuscular HGB Conc 34.1 g/dL (31.5-36.5); Mean Corpuscular Volume 87 fL (80-100); Mean Platelet Volume 8.6 fL (9.1-12.4); NEUTROPHILS ABSOLUTE AUTO 4.95 K/mm3 (1.96-9.15); NEUTROPHILS PERCENT AUTO 80 % (41-73); Platelet Count 166 K/mm3 (150-400); RDW Coefficient Variation 14.5 % (11.7-14.2); RDW Standard Deviation 44.9 fL (35.1-46.3); Red Blood Cell Count 2.84 M/mm3 (4.30-5.90); White Blood Cell Count 6.18 K/mm3 (4.00-11.30)
[2023-03-09 01:53] LABS: Albumin, Blood 1.9 g/dL (3.4-5.0); Albumin/Globulin Ratio 0.4 (0.8-1.8); Bilirubin, Total 0.4 mg/dL (0.1-1.0); Bun/Creatinine Ratio 20.5 (12.0-20.0); Calcium, Blood 8.1 mg/dL (8.5-10.1); Creatinine, Blood 0.54 mg/dL (0.60-1.20); Globulin, Blood 4.7 g/dL (2.2-4.0); Potassium, Blood 3.7 mmol/L (3.5-5.5); Total Protein, Blood 6.6 g/dL (6.4-8.2)
[2023-03-09] MEDS ORDERED: ASPI81CH PT (03:19)
[2023-03-09] MEDS ORDERED: DIVA125 PT (03:20)
[2023-03-09] MEDS ORDERED: MIRT15ST PO (03:21)
[2023-03-09] MEDS ORDERED: PRAM.125 PO (03:24)
[2023-03-09] MEDS ORDERED: B-1100 M2 PT (03:25)
[2023-03-09 03:33] LABS: International Normalized Ratio 1.15
[2023-03-09 04:25] VITALS: BP 122/91
--- NOTE | 2023-03-09 06:42 | NUR ---
PATIENT CAME IN AT 03:40 PER STRETCHER AND TRANSFERRED TO BED COMFORTABLY. WITH PEG TUBE; PT IS ON NPO. WITH CLINTON CATHETER DRAINING WELL. WITH PIV ON LEFT FA PATENT, WITH IV FLUIDS INFUSING WELL. SKIN CHECK DONE. NEEDS ATTENDED. SUCTIONING DONE. CALL LIGHT WITHIN PATIENT'S REACH. WILL CONTINUE TO MONITOR.
[2023-03-09 07:29] VITALS: BP 120/90
[2023-03-09 09:55] LABS: Hematocrit 24.7 % (37.0-53.0); Hemoglobin 8.6 g/dL (13.5-17.5)
--- NOTE | 2023-03-09 10:37 | NUR ---
Case Conference: Met with pt's this morning. She is tearful, and agrees to place patient on comfort care. 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 Pt's Isela reports the patient's health has rapidly declined since the beginning of the year, and she states she recognizes, "he is dying". She is going to call their son who lives in [place], and plans for him to come down to spend time with them both. Dr. Beltre placed comfort care orders during the writing of this note. Isela has Palliative Care phone number, and states she'll call if she has questions. The patient is receiving a bed bath, and Isela gonig home now to call son then try to get some rest. She plans to return this afternoon. POLST filled out, awaiting Dr. Beltre signature.
--- NOTE | 2023-03-09 17:17 | NUR ---
SHIFT SUMMARY: ON COMFORT CARE. IS EXPECTORATING THICK, REDDISH BROWN MUCOUS, IS ABLE TO SELF SUCTION. C/O PAIN IN MOUTH AND THROAT; MEDICATED WITH ROXANOL. AT ~ 1420, PT HAD WHAT APPEARED TO BE A SEIZURE. HE HAD BEEN DANGLING ON SIDE OF BED, THEN BED ALARM WENT OFF, AND HE WAS FOUND LYING DIAGONNALY ACROSS THE BED WITH LIMBS FLAILING; HIS EYES WERE OPEN BUT HE WAS UNRESPONSIVE. AFTER A FEW MINUTES, HE BEGAN BREATHING HEAVILY AND DEEPLY, O2 SAT > 95%. AFTER ~ 20 MINUTES, HE WAS MORE ALERT AND COUGHING, ASSISTED PT WITH SUCTIONING. CLINTON DRAINING ADEQUATE URINE. 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 LEONARD VISITED SHORTLY AFTER SEIZURE ACTIVITY, MADE AWARE OF INCIDENT.
--- NOTE | 2023-03-10 04:26 | NUR ---
PATIENT IS ALERT AND ORIENTED. WITH PIV ON LEFT AC. WITH CLINTON CATHETER DRAINING WELL. WITH PEG TUBE, ON NPO.. ON ISOLATION PRECAUTION DUE TO MRSA. COMPLAINT OF PAIN, MEDICATED WELL. ON ROOM AIR. SUCTION WITH PATIENT, ABLE TO USE IT PROPERLY. REQUEST FOR A WARM BLANKET, PROVIDED ONE. OFFERED ANY PAIN MEDICATION BUT STATED THAT HE IS NOT IN PAIN. NEEDS ATTENDED. CALL LIGHT WITHIN PATIENT'S REACH. WILL CONTINUE TO MONITOR. ON COMFORT CARE.
--- NOTE | 2023-03-10 17:55 | NUR ---
SHIFT SUMMARY: ON COMFORT CARE. C/O ACHING PAIN IN MOUTH AND THROAT; ROXANOL GREENE HIS MOUTH, SO TYLENOL AND DILAUDID WERE GIVEN WITH GOOD EFFECT. AND SON VISITED FOR A SHORT TIME TODAY. OVERALL, HIS DEMEANOR IS MUCH IMPROVED, IS COUGHING LESS, AND JUST SEEMS LESS MISERABLE. BILATERAL ORBITS ARE EDEMATOUS. NO E/O SEIZURE ACTIVITY TODAY.
--- NOTE | 2023-03-11 03:46 | NUR ---
SHIFT SUMMARY PT ON COMFORT CARE. COMPLAINTS OF MOUTH PAIN, MEDICATED PER EMAR WITH RELIEF. PER REPORT ROXANOL GREENE PATIENTS MOUTH. DID NOT GIVE THIS SHIFT. BLOOD IN MOUTH HAS SUBSIDED AT THIS TIME. STILL VERY RED T/O MOUTH AND THROAT. PT HAS RASPY VOICE WITH COUGH. PT SPITTING SPUTUM INTO TISSUES AND USING SUCTION INDEPENDENTLY. CLINTON PATENT AND DRAINING DARK YELLOW OUTPUT. 250 OUT THIS SHIFT. PT HAS PEGTUBE. USES WATER TO SWISH AROUND MOUTH AND SPIT OUT. NPO AT THIS TIME. BED IN LOWEST POSITION WITH CALL LIGHT WITHIN REACH. CALLS FOR NEEDS.
--- NOTE | 2023-03-11 14:41 | NUR ---
PT WAS OFFERED FOOD EARLIER TODAY PER MD HE CAN HAVE WHAT HE WANTS. OFFERED TUBE FEEDINGS AND HE DECLINED. THE PT SPOUSE CAME TO THIS RN AND STATED THERE SEEME TO BE CONFUSION ABOUT HIS TUBE FEEDINGS, "HE DOES WANT THEM." CALLED DR FORREST AND RECIEVED AN ORDER FOR DIETITIAN CONSULT FOR TUBE FEEDINGS. CALLED DIETITIAN; SHE RECOMENDED PALLIATIVE CARE VISIT WITH THE FAMILY. SPOKE TO PALLIATIVE CARE RN AND THEY ASKED THE BEDSIDE RN TO SPEAK TO THE PT AGAIN ABOUT HIS WISHES. PT SPOUSE JUST LEFT THE ROOM, WILL GO SPESK TO THE PT ABOUT HIS WISHES AGAIN.
--- NOTE | 2023-03-11 18:48 | NUR ---
SHIFT SUMMARY- PT HAS BEEN SWITCHED TO LIQUID OXY VIA PEG TUBE, HE SEEMED SUPRISED THAT IT HELPED MUCH IT DID, HE HAS NOT REQUESTED THE IV DILAUDID SINCE THE OXY WAS GIVEN. PT RECIEVED A FULL BED BATH TODAY, HE REQUESTED TUBE FEEDING BE RESUMED. ORDER PLACED AND TUBE FEEDING STARTED THIS EVENING; THE PT HAS NOT HAD TUBE FEEDING SINCE SATURDAY STARTED AT A LOW RATE 25ML/HR AND WILL PASS ON TO TITRATE UP IN 4 HOURS. PT IN BED, HOB LOCKED AT 30 DEGREES D/T TUBE FEEDINGS. CALL LIGHT IN REACH NO S&S OF DISTRESS AT THIS TIME. PT DENIES NEED FOR PAIN MEDS AT THIS TIME. CALLED DR FORREST AND LEFT A MESSAGE ABOUT THE GI COCTAIL HE TALKED ABOUT ORDERING EARLIER, THERE WAS NO ORDER FOR IT YET, AND THE PT ASKED ABOUT THE NUMBING MEDICINE FOR HIS MOUTH. WILL PASS ON TO NIGHT RN.
--- NOTE | 2023-03-12 05:44 | NUR ---
SHIFT SUMMARY PT IS A&O TO SELF, SITUATION, AND PLACE. PT IS ON COMFORT CARE. PT COMPLAINS OF PAIN IN THE ORAL MUCOSA, LIDOCAINE SOLUTION GIVEN FOR PT TO REDUCE DISCOMFORT. PT MEDICATED FOR PAIN THROUGH PEG TUBE NEEDED. PT STARTED ON PEG TUBE FEEDINGS ON DAY SHIFT AND SLOWLY TITRATED UP TO GOAL RATE FROM 25ML TO 50ML AND HOUR. PT IS TOLERATING FEEDS WELL AND VERBALIZES RELIEF WITH WATER FLUSHES. PT VERBALIZES FLATULENCE INCREASING AFTER THE FEEDINGS, PT EDUCATED ON GI MOTILITY. PT KEPT IN A POSITION OF SAFETY AND COMFORT. NO ACUTE EVENTS AT THIS TIME. CALL LIGHT IN REACH.
--- NOTE | 2023-03-12 13:13 | NUR ---
Marcin is resting with eyes closed. No S/Sx of distress noted. No family in the room. Will attempt to reach family by phone.
--- NOTE | 2023-03-12 18:34 | NUR ---
SHIFT SUMMARY MEDICATED APPROX Q4.5 HOURS WITH OXYCODONE WITH WHAT PT REPORTED WITH RELIEF BUT STILL RATED IT THE SAME WHEN MEDICATED. GAVE PT A PAIN ASSESSMENT SHEET TO KEEP AT BEDSIDE AND SEE MORE EASILY UP CLOSE. TUBE FEEDINGS RUNNING TIL APPROX 1500 THIS AFTERNOON WHEN CANS OF FORMULA ARRIVED. AT 1700 WHEN PT ASKED IF HE WANTED TO BE FED HE SAID NO. DENIES NAUSEA OR FEELING BLOATED BUT SAID HE HASN'T HAD AN APPETITE BUT FEELS MORE SASSY AFTER HIS FEEDINGS TODAY.
--- NOTE | 2023-03-12 19:14 | NUR ---
SHIFT SUMMARY PT AWAKE MOST OF THE DAY. TUBE FEEDING INFUSING TIL APPROX 1500 WHEN CARTONS OF TUBE FEEDING ARRIVED. AT 1700 WHEN BOLUS READY TO GIVE PT DECLINED SAYING HE WASN'T HUNGRY BUT DID TAKE WATER WITH HIS PAIN MEDS. AT BEDSIDE TWICE TODAY AND HAD CONVERSATION WITH PALLIATIVE CARE AND RN POST PARTUM. SPOKE WITH DR. KENNEY ABOUT ASSESSMENT OF PAIN CONTROL AND HE INCREASED OXY TO 10MG PRN.
--- NOTE | 2023-03-13 05:05 | NUR ---
PATIENT IS ALERT AND ORIENTED. WITH PIV LINE ON RIGHT WRIST PATENT AND INTACT. WITH PEG TUBE PATENT AND FLUSHING WELL. WITH CLINTON CATHETER DRAINING WELL. ON COMFORT CARE. ON ROOM AIR. ON CONTACT PRECAUTION DUE TO MRSA. COMPLAINTS OF PAIN, MEDICATED ACCORDINGLY. NEEDS ATTENDED. CALLS APPROPRIATELY. WILL CONTINUE TO MONITOR.
--- NOTE | 2023-03-13 18:40 | NUR ---
SHIFT SUMMARY PLAN FOR DISCHARGE TOMORROW HOME ON HOSPICE. MEDICATED REGULARLY FOR PAIN CONTROL. STILL REPORTS PAIN 6 TO 7 RANGE NO MATTER WHAT HE GETS BUT ALSO SAYS PAIN IS MUCH BETTER THAN WHEN HE FIRST ARRIVED TO HOSPITAL. ATROPINE HELPS WITH PTS COUGH CAUSED FROM SECRETIONS. ACCEPTED TUBE FEEDINGS 2 TIMES TODAY WITH 2 FULL CARTONS AND ASKED FOR MORE WATER.
--- NOTE | 2023-03-14 05:36 | NUR ---
PATIENT IS ALERT AND ORIENTED. ON COMFORT CARE. WITH PIV LINE ON RIGHT WRIST PATENT AND INTACT. WITH PEG TUBE PATENT; HAD A 60 CC GASTRIC RESIDUAL. WITH CLINTON CATHETER DRAINING WELL. COMPLAINT OF PAIN, MEDICATED ACCORDINGLY. SLEPT FAIRLY. WILL GO HOME ON HOSPICE TODAY. COMPLAINT THAT NO ONE IS ATTENDING TO HIM, EXPLAINED TO HIM THAT I WAS WITH ANOTHER PATIENT DURING THE TIME WHEN HE CALLED. REQUESTED FOR PEG TUBE FLUSHING, RENDERED. NEEDS ATTENDED. CALL LIGHT WITHIN PATIENT'S REACH. WILL CONTINUE TO MONITOR.
--- NOTE | 2023-03-14 11:45 | NUR ---
PT PICKED UP BY [facility] W/C AT 1130. ABLE TO TRANSFER TO CHAIR WITH MOD ASSISTANCE. MEDICATED PRIOR TO LEAVING. AWARE PT COMING HOME. TO [facility] VIA W/C.
== END 2023-03-14 11:37 | disposition hospice, home (50) ==
LOC: ER 00:48 → MEDS 00:49 → ENPENDDIS 03-14 10:30 → MEDS 03-14 11:37
PROVIDERS: Emergency Medicine; ADMIT Internal Medicine
DX: C86.0 Extranodal NK/T-cell lymphoma, nasal type (principal); R04.0 Epistaxis; E87.1 Hypo-osmolality and hyponatremia; D64.9 Anemia, unspecified; R13.10 Dysphagia, unspecified; E43 Unspecified severe protein-calorie malnutrition; Z68.20 Body mass index [BMI] 20.0-20.9, adult; Z51.5 Encounter for palliative care; Z66 Do not resuscitate; I10 Essential (primary) hypertension; E78.5 Hyperlipidemia, unspecified; K21.9 Gastro-esophageal reflux disease without esophagitis; I25.10 Atherosclerotic heart disease of native coronary artery without angina pectoris; Z88.5 Allergy status to narcotic agent; Z88.8 Allergy status to other drugs, medicaments and biological substances; Z79.82 Long term (current) use of aspirin; Z79.899 Other long term (current) drug therapy
CPT/HCPCS: 36415; 80053; 83880; 85014; 85018; 85025; 85610; 87040; 96360; 96361; 96365; 96366; 96367; 96375; 96376; 99284-25; A9270; G0378; J0295; J1170; J2060; J7030; P9047

== ENCOUNTER 2023-03-16 06:45 | Observation (INO) | payer OTHER ==
[~2023-03-16] VITALS: Ht 185.4 cm; Wt 49.9 kg
[~2023-03-16 06:45] MED LIST changes: +ASPI81CH PT; +MIRT15ST PO
[2023-03-16 06:51] VITALS: BP 120/96
[2023-03-16] MEDS ORDERED: HYDROmorphone HCl/Pf 1MG SYR IM ONE (08:20)
[2023-03-16] MEDS ORDERED: HYDROmorphone HCl 2 MG Tab PO PRN (11:30)
[2023-03-16] MEDS ORDERED: FLU VACC QS2023-24(6MOS UP)/PF 60 MCG/0.5 ML SYRINGE IM ONE (11:30)
[2023-03-16] MEDS ORDERED: HYDROmorphone HCl/Pf 1MG SYR IV PRN (11:35)
[2023-03-16] MEDS ORDERED: Acetaminophen 650 MG Supp PR PRN (13:05)
[2023-03-16] MEDS ORDERED: Promethazine HCl 25 MG Tab PO PRN (13:05)
[2023-03-16] MEDS ORDERED: Acetaminophen 160MG / 5ML 10.15 UDC PO PRN (13:05)
[2023-03-16] MEDS ORDERED: Acetaminophen 325 MG TABLET PO PRN (13:05)
[2023-03-16] MEDS ORDERED: Promethazine HCl 25 MG Supp PR PRN (13:05)
[2023-03-16] MEDS ORDERED: LORazepam 2 MG/ML 1ML Injection IV PRN (13:10)
[2023-03-16] MEDS ORDERED: Scopolamine Hydrobromide Patch TOP PRN (13:10)
[2023-03-16] MEDS ORDERED: FentaNYL 25 MCG Patch TOP SCH (13:10)
[2023-03-16] MEDS ORDERED: Atropine Sulfate 1% Opth Soln 2ML BTL SL PRN (13:10)
[2023-03-16] MEDS ORDERED: Ondansetron HCl 2 MG / ML 2ML Vial IV PRN (13:10)
[2023-03-16] MEDS ORDERED: LORazepam 1 MG Tab PO PRN (13:10)
--- NOTE | 2023-03-16 17:16 | NUR ---
SHIFT SUMMARY: PATIENT ARRIVED TO ROOM AT 1300 FROM ER FOR DX'S OF COMFORT CARE MEASURES ONLY. PATIENT ALERT AND ORIENTED TO SELF, VERY SLOW TO RESPOND AND ANSWER YES/NO TO QUESTIONS. PATIENT ON COMFORT CARE, RECEIVED BEDBATH, ORAL CARE AND REPOSITIONED. PATIENT HAS CHRONIC CLINTON AND WAS CHANGED IN ED PER REPORT. CLINTON PATENT, DRAINING ALDO COLOR c 925 MLS TOTAL URINE OUTPUT THIS SHIFT. PATIENT IN BED APPEARS TO BE RESTING COMFORTABLY, NO FACIAL GRIMACES OR BODY TWITCHING, RR IS EVEN AND UNLABORED. PATIENT RECEIVED COMFORT CARE MEDS PER EMAR. BED ALARM ON FOR SAFETY. CALL LIGHT IN REACH.
--- NOTE | 2023-03-16 17:23 | NUR ---
Pt initially seen in ER. He has laying on his side curlled up. drooling brown liquids that smelled of stool. the patient had stron smell of stool. at bedside stated he was having more sinus pain. They tried a melissa pot to loosing some of the pressure. stated after treatment he began vomiting up blood and dark blood coming out of nose. He then started vomining up stool. Pt is pale and cheeks red and raw looking eyes are tearing frequently. Pt very thin and frail. at bedside is exhaused displaying severe caregiver stress. She does not want us to call her son. He is at work on a new job. Elizabeth nurse arrived and is speaking with pt .
--- NOTE | 2023-03-17 04:59 | NUR ---
SHIFT SUMMARY: RESTING IN BED THIS SHIFT, C/O PAIN TO MOUTH, THRAOT AND HEAD, MEDICATED PER EMAR, ATTEPTED TO SELF TRANSFER X1 THIS SHIFT, CLINTON CATH PATANT AND DRAINING ALDO COLOR URINE, A&O TO SELF, SLOW TO RESPOND WHEN SPOKEN TO OR ASKED SIMPLE YES/NO QUESTIONS.
[2023-03-17] MEDS ORDERED: Saline Nasal Spray 45 ML PRN (10:10)
--- NOTE | 2023-03-17 14:36 | NUR ---
Review of nursing with symptoms and needs. Pt may not tolerate saline if not will try some afrin or just moisture. sinuse and no will continue to become more uncomfortable. Pt mucous memebranes may be failing like his GI tract. If he get any thinner fentanly patch may not work. He is sleeping more. Review with nursing of carefully watching for nause and carefully giving him a small does of jevity and see how he tolerates. high risk for aspiration and intolerance. goal is to find a outpatient plan.
--- NOTE | 2023-03-17 15:17 | NUR ---
SHIFT SUMMARY PT RESTING QUIETLY AT START OF SHIFT. WOKE EASILY FOR CARE. PT ON COMFORT CARE, BUT ABLE TO MAKE NEEDS KNOWN. PT ON HOSPICE FROM HOME NEEDING INPT HOSPICE, UNABLE TO CARE FOR PT ANY LONGER. CLINTON TO GRAVITY; PATENT. PT NPO WITH PEG TUBE TO MID ABD. PER REPORT, PEG TUBE CLOGGED WITH STOOL. RECOMMENDED NOT TO FLUSH PT VOMITING STOOL UPON ADMIT. PT WANTING TO BE FED NEEDED. DR FORREST NOTIFIED; NEW ORDERS PLACED TO FEED PT SMALL AMTS PER LAST DIETARY CONSULT. PALLIATIVE CARE ASSISTED IN OBTAINING JEVITY AND ADVISED SMALL AMTS ONLY BE GIVEN AT A TIME. PT REQUESTING SALINE NASAL SPRAY; ORDERED PER DR FORREST. PT MEDICATED WITH IV DILAUDID AT THIS TIME, PER EMAR. DENIED FURTHER NEEDS AT THIS TIME. CALL LT IN REACH.
[2023-03-18] MEDS ORDERED: DiphenhydrAMINE HCl 50 MG/ML 1ML Vial IV PRN (00:45)
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
--- NOTE | 2023-03-18 15:52 | NUR ---
Spiritual care visit attempted. Upon receiving a referral for spiritual care, I visited the patient. His spouse, Isela is bedside and states that patient is tired and states that coming another day would be better. I will continue to remain available to patient and family
--- NOTE | 2023-03-18 17:39 | NUR ---
SHIFT SUMMARY PT AXO X3, FORGETFUL AND CHEHALIS BUT COOPERATIVE WITH CARE. MEDICATED FOR PAIN AND ANXIETY PER EMAR. PT STATES THOSE MEDICATIONS HELP. PEG TUBE FLUSHED PER PT REQUEST AND WITH FEEDINGS AND MEDICATION ADMINISTRATION. PT REPOSITIONED HE WOULD ALLOW. BEDBATH THIS AM. BED IN LOW POSITON, CALL LIGHT WITHIN REACH. PEG TUBE SITE CLEANED AND GAUZE PLACED. ON COMFORT CARE.
--- NOTE | 2023-03-19 04:11 | NUR ---
SHIFT SUMMARY: VON IS A&OX3, FORGETFUL. IV TO R AC PATENT. HE REPORTS ADEQUATE PAIN CONTROL WITH MEDICATIONS PER MAR. ATTENDS IN PLACE. PT DID NOT REQUEST TUBE FEEDING THIS SHIFT. HE IS USING THE SUCTION INDEPENDENTLY, RINSES HIS MOUTH THEN SPITS INTO THE SUCTION TUBE. PT IS COUGHING UP WHITE AND PINK SPUTUM WHICH RESEMBLES TISSUE. CLINTON PATENT, DRAINING TO GRAVITY, COLLECTION BAG HANGING ABOVE THE GROUND. CLINTON IS CHRONIC, PER REPORT THE CLINTON WAS REPLACED IN THE ER ON ADMISSION, A URINE SAMPLE WAS SENT. HE IS LYING IN BED WITH THE CALL LIGHT IN REACH. WILL GIVE REPORT TO DAY SHIFT RN.
--- NOTE | 2023-03-19 19:58 | NUR ---
SHIFT SUMMARY PATIENT WITH PAIN AND ANXIETY TODAY. MEDICATED PER EMAR. PATIENT REQUESTED COFFEE TODAY AND EDUCATED ON RISKS OF ASPIRATION, AND PATIENT V/U. PATIENT PLACED COFFEE IN MOUTH AND THEN SWABBED MOUTH OUT AND USED SUCTION TO REMOVE EXCESS INSTEAD OF SWALLOWING, HE DID ALSO REQUEST WATER AND SWALLOWED SOME FOR COMFORT. PATIENT ALSO REQUESTING JEVITY THIS AFTERNOON AND EVENING. HE TOLERATED WELL AND HAD NO RESIDUAL EITHER TIME PRIOR TO FEEDING. CARE DANIELLE PROVIDED TO PATIENT ON TELEVISION. PATIENT TURNED EVERY 2 HOURS. PATIENT DOES NOT USE CALL LIGHT. BED IN LOW POSITION AND PATIENT ON BEDREST.
--- NOTE | 2023-03-20 04:23 | NUR ---
SHIFT SUMMARY VON WAS ALERT AND ORIENTED TO SELF, HOSPITAL, AND SITUATION AT THE START OF THE SHIFT. COMFORT CARE PT. Q2 REPOSITIONS PEG TUBE DRESSING CDI, CLINTON DRAINING DARK YELLOW URINE. PT IS [place], AND SOFT SPOKEN. PT C/O PAIN IN THROAT AND HEADACHE. MEDICATED PER EMAR. NO CHANGES TO PT CONDITION, NO ACUTE EVENTS TONIGHT. PT RESTING IN BED AT A LOW POSITION WITH CALL LIGHT IN REACH.
[2023-03-20] MEDS ORDERED: Morphine Sulfate 20 MG/1ML 1 ML Oral Syringe PO PRN (15:45)
--- NOTE | 2023-03-20 19:39 | NUR ---
SHIFT SUMMARY PATIENT WITH INCREASING PAIN, ANXIETY AND SHORTNESS OF BREATH. MEDICATED PER EMAR. DR CARBALLO MADE AWARE OF SHORTNESS OF BREATH AND ADDED ROXANOL ORDER FOR AIR HUNGER. PATIENT ALSO PLACED ON 2LPM O2 NASAL CANULA FOR COMFORT. PATIENT VERBALIZES NEED FOR JEVITY FOR COMFORT AND PAIN/ANXIETY MEDICATIONS. HE IS NOT SUCTIONING HIMSELF MUCH TODAY, SLEEPING MORE TODAY AND NOW NEEDED CARESTAFF TO PERFORM ORAL CARE HE IS HAVING INCREASED DIFFICULTY IN THIS AREA. ATROPINE ALSO STARTED FOR SECRETIONS THIS EVENING. PATIENT TURNED EVERY 2 HOURS. BED IN LOW POSITION.
--- NOTE | 2023-03-21 05:14 | NUR ---
SHIFT SUMMARY PT ALERT TO VERBAL STIMULI. CLINTON CATH IN PLACE PATENT AND DRAINING SMALL AMOUNT OF DARK URINE. PT HAS BLOOD MIXED WITH THICK SPUTUM COMING OUT OF MOUTH. CLEANED OUTSIDE OF MOUTH NEEDED. PROVIDED ORAL SWABS NEEDED. MEDICATED PT FOR PAIN SEE EMAR. PT NO LONGER ABLE TO SUCTION SELF. HOB ELEVATED TO HELP DRAIN SECRETIONS. PT HAS PEG TUBE IN PLACE AND GIVEN 75 ML X2 THIS SHIFT. 120 ML WATER FLUSHES. REPOSITIONED NEEDED. COMFORT CARE ONLY. BED KEPT IN LOWEST POSIITON WITH CALL LIGHT WITHIN REACH.
--- NOTE | 2023-03-21 10:44 | NUR ---
Spoke with Yaima at [facility]. They are evaluating the patient now for likely admission this afternoon. After conversation with Yaima, spoke with Dr. Beltre, and we will increase pain medication parameters, as pt's pain does not appear to be well controlled. With home hospice, the goal is no IV. 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 Awaiting return call from Yaima, and updated pharmacy customer care specialist.
[2023-03-21] MEDS ORDERED: HYDROmorphone HCl/Pf 1MG SYR IV PRN (11:10)
[2023-03-21] MEDS ORDERED: Morphine Sulfate 20 MG/1ML 1 ML Oral Syringe SL PRN (11:10)
[2023-03-21] MEDS ORDERED: Famotidine 20 MG Tab PT SCH (12:00)
[2023-03-21] MEDS ORDERED: Lansoprazole 15 MG TAB.RAP.DR PT SCH (12:07)
--- NOTE | 2023-03-21 14:15 | NUR ---
Spiritual care visit conducted. Patient is lying in bed and alert. He immediately shakes his head "no" when asked if he is holding up ok. He is unable to express what the petersen issues are but said, "Help me." I ask him is I could say a prayer for him and he nods his head affirmingly. I gladly provide prayer. Patient appeared to be in a greater state of peace. I will continue to remain available to patient and family.
--- NOTE | 2023-03-21 18:24 | NUR ---
PT AOX0 AND AT TIMES HAS JUST CALLED OUT FOR SOMEONE TO HELP HIM. PT TREATED PER EMAR TO GET COMFORTABLE AND APPEARS TO BE DOING BETTER ONCE IV PAIN MEDS WERE BACK ON BOARD IV HAD NEEDED REPLACED. PT IS TURNED EVERY COUPLE HOURS AND REPOSTIONED. MARY BETH IS PATIENT WILL CONTINUE TO MONITOR.
--- NOTE | 2023-03-22 07:04 | NUR ---
SHIFT SUMMARY PT IS ON COMFORT CARE. NOT RESPONDING TO VERBAL STIMULI ANY LONGER. MEDICATED FOR SECRETIONS, AIR HUNGER, ANXIETY, AND PAIN. SEE EMAR. PT ON 2L O2 FOR COMFORT. PEG TUBE IN PLACE AND FEEDING 75 ML BOLUS X2 THIS SHIFT. 60 ML X2 FLUSH. PT BREATHING BECOMING INCREASINGLY ABNORMAL. SHALLOW RESPIRATIONS WITH PAUSES. NOTIFIED THIS SHIFT AND IS CURRENTLY AT BEDSIDE. CLINTON IN PLACE, PATENT AND DRAINING DARK URINE, LITTLE OUTPUT THIS SHIFT. BED IN LOWEST POSITION WITH CALL LIGHT IN REACH.
--- NOTE | 2023-03-22 11:29 | NUR ---
Pt's at bedside this am. Notified [facility] pt will be not be transferring as his condition has changed. His symptoms indicate he is actively dying, and will remain here on comfort care. Placed a quilt on pt's bed, states she appreciates this, as it feels "more cozy". Comfort cart ordered by bedside RN this am. Pt appears relaxed, eyes closed and resp unlabored. He is no longer waking. states their son will be in sometime this morning. We discussed end of life symptoms, and she states she has no questions at this time. Palliative will remain available.
--- NOTE | 2023-03-22 16:16 | NUR ---
PT HAS BEEN UNRESPONSIVE ALL DAY. TREATED PER EMAR FOR COMFORT. TURNED AND REPOSTIONED EVERY COUPLE HOURS. FAMILY HAS BEEN AT BED SIDE MOST OF THE DAY OFF AND ON. WILL MONITOR CLOSELY.
--- NOTE | 2023-03-23 05:53 | NUR ---
SHIFT SUMMARY 72 YR M ON COMFORT CARE. PT HAS BEEN UNRESPONSIVE FOR ENTIRE SHIFT. RESPIRATIONS ARE TACHY AND LABORED. PT HAS BEEN AT BEDSIDE FOR MOST OF THE NIGHT. SHE GETS ANXIOUS WHEN SHE THINKS PT IS IN PAIN OR HAVING TROUBLE BREATHING. SHE ASKED SEVERAL TIMES FOR HIM TO BE MEDICATED AND HE WAS GIVEN ROXINOL PER EMAR. THIS NURSE IS CONCERNED THAT PT'S MAY NOT FULLY UNDERSTAND THE CONCEPT OF COMFORT CARE AND MAY ASK FOR INTERVENTIONS TO PROLONG HIS LIFE HE IS ACTIVELY DYING. CHARGE NURSE WAS SPOKEN TO REGARDING THIS CONCERN AND ANOTHER REFERAL WAS PUT IN TO PALLIATIVE CARE TO SPEAK WITH FOR CLARIFICATION.
--- NOTE | 2023-03-23 08:00 | NUR ---
pt laying in bed positioned on his side with pillows, spouce in room, seems anxious, pt has no s/s of distress, breathing is fast and shallow, lungs dim, on 2 liters, non responsive, eyes are open, but not moving, repositioned him to other side, states no further needs. call light in reach.
--- NOTE | 2023-03-23 17:41 | NUR ---
pt passed at 1740, found without resp or heart beat. Dr. Beltre notified, charge nurse calling spouce. iv removed intact.
== END 2023-03-23 17:40 ==
LOC: ER 06:45 → MEDS 06:46
PROVIDERS: ADMIT Internal Medicine
DX: K94.23 Gastrostomy malfunction (principal); C86.0 Extranodal NK/T-cell lymphoma, nasal type; E78.5 Hyperlipidemia, unspecified; I10 Essential (primary) hypertension; K21.9 Gastro-esophageal reflux disease without esophagitis; G40.909 Epilepsy, unspecified, not intractable, without status epilepticus; R04.2 Hemoptysis; D64.9 Anemia, unspecified; I25.10 Atherosclerotic heart disease of native coronary artery without angina pectoris; E46 Unspecified protein-calorie malnutrition; Z66 Do not resuscitate; Z51.5 Encounter for palliative care; Z88.5 Allergy status to narcotic agent; Z88.8 Allergy status to other drugs, medicaments and biological substances
CPT/HCPCS: 74018; 96374; 96375; 96376; 99284-25; A9270; G0378; J1170; J2060